=== PATIENT | male | born 1965 | race Caucasian/White ===

== ENCOUNTER 2024-06-23 19:12 | Emergency (ER) | payer OTHER ==
[~2024-06-23] VITALS: Ht 182.9 cm; Wt 111.1 kg
[~2024-06-23 19:12] MED LIST: ATIVAN2 M1 PO; LISINOPRIL20 MG PO
[2024-06-23] MEDS ORDERED: FAMOTIDINE/PF 20 MG in 0.9 % SODIUM CHLORIDE 8 ML IV PUSH STA (22:03)
[2024-06-23] MEDS ORDERED: KETOROLAC TROMETHAMINE 30 MG VIAL ONE (22:14)
[2024-06-23] MEDS ORDERED: ONDANSETRON HCL 2 MG/ML VIAL ONE (22:15)
[2024-06-23] MEDS ORDERED: 0.9 % SODIUM CHLORIDE 1,000 ML IV SCH (22:15)
[2024-06-23] MEDS ORDERED: KETOROLAC TROMETHAMINE 30 MG VIAL IV ONE (22:15)
[2024-06-23] MEDS ORDERED: ONDANSETRON HCL 2 MG/ML VIAL IV ONE (22:15)
[2024-06-23] MEDS ORDERED: FAMOTIDINE/PF 20 MG/2 ML VIAL ONE (22:15)
[2024-06-23 23:05] LABS: HEMATOCRIT 48.3 % (39.0-48.0); HEMOGLOBIN 16.4 g/dL (13-16.00); MEAN CELL VOLUME 90.8 fL (80.0-100.00); MEAN CORPUSCULAR HEMOGLOBIN 30.8 pg (27.00-32.0); MEAN CORPUSCULAR HGB CONC 33.9 g/dl (32.0-36.0); PLATELET COUNT 231 K/uL (150-450); RED BLOOD COUNT 5.32 M/uL (4.00-6.00)
[2024-06-23 23:32] LABS: ALBUMIN 3.6 gm/dL (3.4-5.0); ALKALINE PHOSPHATASE 97 U/L (50-136); ALT/SGPT 63 U/L (12-78); AMYLASE 84 U/L (25-115); ANION GAP 6 (10.0-20.0); AST/SGOT 41 U/L (15-37); BILIRUBIN,CONJUGATED < 0.10 mg/dL (0.0-0.2); BLOOD UREA NITROGEN 20 mg/dL (7-18); BUN CREA RATIO 17 (7.0-25.0); CALCIUM 8.8 mg/dL (8.5-10.1); CARBON DIOXIDE 30 mEq/L (21-32); CHLORIDE 108 mmol/L (98-107); CREATININE SERUM 1.17 mg/dL (0.70-1.30); GFR 64.25; GLOBULINA 3.7 G/DL (2.4-3.5); GLUCOSE FASTING 111 mg/dL (65-100); LIPASE 57 U/L (13-75); OSMOLALITY SERUM 283 MOSM/KG (275-295); POTASSIUM 4.04 mEq/L (3.5-5.1); SODIUM 140 mmol/L (136-145); TOTAL PROTEIN 7.3 gm/dL (6.4-8.2)
[2024-06-24] MEDS ORDERED: HYOSCYAMINE SULFATE 0.125 MG TAB.SUBL SL STA (02:56)
[2024-06-24] MEDS ORDERED: HYOSCYAMINE SULFATE 0.125 MG TAB.SUBL ONE (03:03)
== END 2024-06-24 05:05 | disposition home or self-care (01) ==
LOC: ER 19:12
PROVIDERS: General Practice
DX: R14.1 Gas pain (principal); I88.0 Nonspecific mesenteric lymphadenitis